=== PATIENT | male | born 1950 | race Caucasian/White ===

== ENCOUNTER → 2022-11-06 | Outpatient (CLI) | payer BC, MEDICARE ==
--- NOTE | 2022-11-06 07:59 | CTL ---
EXAMINATION TYPE: CT Low Dose Lung DATE OF EXAM ORDERED: 11/06/2022 HISTORY: Z87.891. Quit smoking 2012, 20 pack year history. Lung cancer screening CT DLP: [address] CTDI: 1.76 mGy Automated exposure control for dose reduction was used. SCREENING VISIT: First screening visit COMPARISON: None TECHNIQUE: Low dose computed tomography scan was performed through the chest at 1 mm thick sections a nd reconstructed images in multiple planes at 1 mm and [address] DIAGNOSTIC QUALITY: Satisfactory FINDINGS: Left upper lobe 3 mm pulmonary nodule (series 8, image 26). Subpleural left lower lobe 2 mm pulmonary nodule (series 8, image 43). Medial right upper lobe calcified granuloma. Subpleural anterior right upper lobe 3 mm pulmonary nodule (series 8, image 27). 4 mm nodule along the right minor fissure whic h may represent intrafissural lymph node (series 8, image 31). Medial right upper lobe 5 mm nodule al inna the right minor fissure which may represent an intrafissural lymph node. LUNGS: COPD: Severity: Minimal Fibrosis: Severity: None Lymph nodes: No pathologically enlarged lymph nodes. A few calcified mediastinal lymph nodes. Other findings: None RIGHT PLEURAL SPACE: Effusion: None Calcification: None Thickening: None Pneumothorax: None LEFT PLEURAL SPACE: Effusion: None Calcification: None Thickening: None Pneumothorax: None HEART: Heart Size: Normal Coronary Calcification: Small Pericardial Effusion: None OTHER FINDINGS: Upper abdomen: None Bony thorax: None Supraclavicular region: None Other: None IMPRESSION: 1. Few pulmonary nodules measuring up to 5 mm. 2. Sequelae of prior granulomatous disease. CT LUNG RAD AND CT CHEST RECOMMENDATION: Lung-Rad 2 Benign Appearance or Behavior: Continue annual sc reening with LDCT in 12 months. S Modifier (other clinically significant findings): None
== END | disposition home or self-care (01) ==
LOC: RADCTMAIN 07:24
PROVIDERS: ATTEND Internal Medicine
DX: Z12.2 Encounter for screening for malignant neoplasm of respiratory organs (principal); R91.8 Other nonspecific abnormal finding of lung field; L92.9 Granulomatous disorder of the skin and subcutaneous tissue, unspecified; Z87.891 Personal history of nicotine dependence
CPT/HCPCS: 71271

== ENCOUNTER → 2023-08-26 | Outpatient (CLI) | payer BC, MEDICARE ==
--- NOTE | 2023-08-26 10:39 | US ---
EXAMINATION TYPE: US Aorta Screening DATE OF EXAM: 08/26/2023 COMPARISON: NONE CLINICAL INDICATION: Male, 72 years old with history of E80.6 hyperbilirubinemia Z13.6 AAA screen; AA A screening TECHNIQUE: Multiple sonographic images of the abdominal aorta are obtained. FINDINGS: EXAM MEASUREMENTS: Abdominal Aorta: Proximal: 2.6 x 1.8 cm Mid: 1.8 x 1.6 cm Distal: 1.7 x 1.8 cm Bifurcation: Right Iliac: 1.4 cm Left Iliac: 1.3 cm SAP ABAP DEVELOPER NOTES: IMPRESSION: No abdominal aortic aneurysm.
--- NOTE | 2023-08-26 10:50 | US ---
EXAMINATION TYPE: US abdomen complete DATE OF EXAM: 08/26/2023 COMPARISON: NONE CLINICAL INDICATION: Male, 72 years old with history of E80.6 hyperbilirubinemia Z13.6 AAA screen; Ab n labs TECHNIQUE: Multiple sonographic images of the abdomen are obtained. FINDINGS: EXAM MEASUREMENTS: Liver Length: 14.4 cm Gallbladder Wall: .3 cm CBD: .4 cm Spleen: 13.6 cm Right Kidney: 11.2 x 5.5 x 4.0 cm Left Kidney: 11.0 x 5.5 x 4.6 cm BOLOGNA LACER NOTES: Pancreas: Obscured by bowel gas Liver: Increased attenuation Gallbladder: Possible polyps seen Evidence for sonographic Koehler's sign: no CBD: wnl Spleen: wnl Right Kidney: No hydronephrosis or masses seen Left Kidney: No hydronephrosis or masses seen Upper IVC: Limited due to bowel gas. Abd Aorta: wnl The liver is homogenous. No focal lesion identified. No intrahepatic biliary duct dilatation identif ied. The proximal abdominal aorta is within normal limits. Poor visualization of the upper IVC due to overlying bowel gas. There is no evidence of cholelithiasis. No wall thickening or surrounding fluid . There are 2 gallbladder polyps identified with largest measuring up to 4 mm. Common bile duct is un remarkable. The pancreas is obscured by overlying bowel gas. The spleen is unremarkable. Kidneys ar e symmetric and free of hydronephrosis. No renal lesions are seen. IMPRESSION: 1. No acute process. 2. There are 2 gallbladder polyps with the largest measuring up to 4 mm. Follow-up ultrasound in 6 mo nths is recommended to assess for stability.
== END ==
LOC: RADUSWWP 08:25
PROVIDERS: ATTEND Internal Medicine
DX: Z13.6 Encounter for screening for cardiovascular disorders (principal); K82.4 Cholesterolosis of gallbladder; E80.6 Other disorders of bilirubin metabolism; R79.9 Abnormal finding of blood chemistry, unspecified
CPT/HCPCS: 76700; 76706

== ENCOUNTER → 2023-12-19 | Outpatient (CLI) | payer MEDICARE ==
--- NOTE | 2023-12-19 11:58 | CTL ---
EXAMINATION TYPE: CT Low Dose Lung DATE OF EXAM ORDERED: 12/19/2023 HISTORY: . Lung cancer screening CT DLP: 95.[address] CTDI: 2.5 mGy Automated exposure control for dose reduction was used. SCREENING VISIT: COMPARISON: 11/06/2022 TECHNIQUE: Low dose computed tomography scan was performed through the chest at 1 mm thick sections a nd reconstructed images in multiple planes at 1 mm and [address] DIAGNOSTIC QUALITY: Satisfactory FINDINGS: Mild emphysematous changes. There is interlobular septal thickening along the periphery of the lungs likely representing mild pulmonary fibrosis. There is no consolidative pneumonia or pulmonary edema. No pleural effusion or pneumothorax. Atherosclerotic change aorta and mild coronary artery calcificat ion. Trace pericardial fluid. Heart size upper limits of normal. Small hiatal hernia. Trace a gynecomastia. Degenerative changes of the spine. Calcified lymph nodes i n the hilum. Bilateral multiple sub-5 mm pulmonary nodules are stable. IMPRESSION: 1. Mild COPD with the stable 5 mm or less pulmonary nodules too small to characterize but likely kassandra gn. Excellent 2. Correlate for mild pulmonary fibrosis. CT LUNG RAD AND CT CHEST RECOMMENDATION: Lung-Rad 2 Benign Appearance or Behavior: Continue annual sc reening with LDCT in 12 months. [facility], , 12/19/2023 11:55 AM
== END | disposition home or self-care (01) ==
LOC: RADCTMAIN 07:07
PROVIDERS: ATTEND Internal Medicine
DX: Z12.2 Encounter for screening for malignant neoplasm of respiratory organs (principal); J44.9 Chronic obstructive pulmonary disease, unspecified; R91.8 Other nonspecific abnormal finding of lung field; Z87.891 Personal history of nicotine dependence
CPT/HCPCS: 71271

== ENCOUNTER → 2024-07-20 | Outpatient (CLI) | payer MEDICARE ==
--- NOTE | 2024-07-20 07:39 | US ---
EXAMINATION TYPE: US gallbladder DATE OF EXAM: 07/20/2024 COMPARISON: 08/26/2023 CLINICAL INDICATION: Male, 73 years old with history of K82.4 GALLBLADDER POLYP; TECHNIQUE: Grayscale and color Doppler imaging of the right upper quadrant was performed. FINDINGS: EXAM MEASUREMENTS: Liver Length: 16.2 cm Gallbladder Wall: 0.2 cm CBD: 0.3 cm Right Kidney: 11.7 x 5.2 x 5.7 cm Pancreas: obscured by overlying midline bowel gas Liver: scanned intercostally, visualized portions wnl Gallbladder: multiple hyperechoic foci along the wall with largest measuring 0.5cm Evidence for sonographic Koehler's sign: no CBD: visualized portions wnl, limited by overlying bowel gas Right Kidney: wnl IMPRESSION: 1. Multiple gallbladder wall polyps are now demonstrated, largest measuring 5 mm. As only 2 were seen previously measuring up to 4 mm, additional 6 month follow-up recommended. 2. No gallstones or biliary ductal dilatation. [facility], , 07/20/2024 7:37 AM
== END | disposition home or self-care (01) ==
LOC: RADUSWWP 07:06
PROVIDERS: ATTEND Internal Medicine
DX: K82.4 Cholesterolosis of gallbladder (principal)
CPT/HCPCS: 76705